=== PATIENT | female | born 1995 | race Two or more races ===

== ENCOUNTER 2017-02-11 17:35 | Emergency (ER) | payer SELFPAY ==
[2017-02-11 17:52] VITALS: BP 121/71
[2017-02-11] MEDS ORDERED: FAMOTIDINE 20 MG/2 ML VIAL IVP ONE (18:30)
[2017-02-11] MEDS ORDERED: ONDANSETRON PF 4 MG/2 ML VIAL. IV ONE ×2 (18:30)
[2017-02-11] MEDS ORDERED: IV NORMAL SALINE 1000ML BAG 1,000 ML IV ONE (18:30)
[2017-02-11 18:38] LABS: BASO # 0.1 x10^3/uL (0.0-0.2); BASO % 1 % (0-3); EOS % 1 % (0-3); HEMATOCRIT 35.5 % (36.0-47.0); HEMOGLOBIN 11.3 g/dL (12.0-15.5); LYMPH # 2.1 x10^3/uL (1.0-4.8); LYMPH % 20 % (24-48); MEAN CORPUSCULAR HEMOGLOBIN 23 pg (25-35); MEAN CORPUSCULAR HGB CONC 32 g/dL (31-37); MEAN CORPUSCULAR VOLUME 73 fL (79-100); MONO % 8 % (0-9); NEUT % 71 % (31-73); PLATELET COUNT 251 x10^3/uL (140-400); RED BLOOD COUNT 4.89 x10^6/uL (3.50-5.40); RED CELL DISTRIBUTION WIDTH 16.5 % (11.5-14.5); WHITE BLOOD COUNT 10.5 x10^3/uL (4.0-11.0)
[2017-02-11 18:46] LABS: BILIRUBIN,URINE NEGATIVE (NEG); GLUCOSE,URINE NEGATIVE (NEG); NITRITE,URINE NEGATIVE (NEG); PROTEIN,URINE NEGATIVE (NEG-TRACE)
[2017-02-11 18:52] LABS: BACTERIA,URINE 0 /HPF (0-FEW); CREATININE 0.6 mg/dL (0.6-1.0); GFR 128.8; POTASSIUM 3.3 mmol/L (3.5-5.1); RBC,URINE RARE /HPF (0-2); SQUAMOUS EPITHELIAL CELL,UR OCC /LPF; WBC,URINE 0 /HPF (0-4)
[2017-02-11 18:58] LABS: ALBUMIN 3.9 g/dL (3.4-5.0); ALBUMIN/GLOBULIN RATIO 0.9 (1.0-1.7); TOTAL BILIRUBIN 0.6 mg/dL (0.2-1.0); TOTAL PROTEIN 8.1 g/dL (6.4-8.2)
[2017-02-11] MEDS ORDERED: PNV1TABL34 PO (19:48)
[2017-02-11] MEDS ORDERED: ONDA4TAB10 SL (19:48)
--- NOTE | 2017-02-11 19:48 | PHYS DOC ---
Past Medical History Past Medical History: GERD Past Surgical History: No Surgical History Alcohol Use: Rarely Drug Use: None Adult General Chief Complaint Chief Complaint: ABDOMINAL PAIN HPI HPI Patient is a 21 year old female who presents here today complaining of midepigastric pain radiating to her chest. Patient reports that she has a history significant for GERD but feels like her symptoms get worse. Patient denies any other symptomatology. Patient denies any fevers shakes chills. Patient portion had nausea and vomiting 2. Patient has any diarrhea. Patient has a dysuria frequency or urgency. Patient has any vaginal bleeding. Patient reports her last menstrual period was approximately 4 weeks ago. Patient has any melena or bright red blood per rectum. Patient denies any hematemesis. Patient reports that she ate chicken earlier today prior to her stomach hurting. She reports that she can with baked nonfried. Patient is 0 para 0. Review of systems Constitutional: Denies fever or chills Eyes: Denies change in visual acuity, redness, or eye pain HENT: Denies nasal congestion or sore throat Physical exam Constitutional: Well developed, well nourished, no acute distress, non-toxic appearance. HENT: Normocephalic, atraumatic, bilateral external ears normal, oropharynx moist, no oral exudates, nose normal. Eyes: PERRLA, EOMI, conjunctiva normal, no discharge. Neck: Normal range of motion, no tenderness, supple, no stridor. Cardiovascular:Heart rate regular rhythm, Lungs & Thorax: Bilateral breath sounds clear to auscultation Abdomen: Bowel sounds normal, soft, no tenderness, no masses, no pulsatile masses. Mild midepigastric tenderness to palpation. No Mejia sign. No rebound or guarding. Patient does not present with any signs or symptoms that would be consistent with an acute surgical abdomen. Skin: Warm, dry, no erythema, no rash. Back: No tenderness, no CVA tenderness. Extremities: No tenderness, no cyanosis, no clubbing, ROM intact, no edema. Neurologic: Alert and oriented X 3, normal motor function, normal sensory function, no focal deficits noted. Psychologic: Affect normal, judgement normal, mood normal. This is a 21-year-old female who presents here today complaining of midepigastric discomfort consistent with her GERD-type pain. Patient had normal CBC and chemistry. Patient's UA was unremarkable. Patient's labs were significant for a positive test. She had a beta hCG of greater than 30 ,000. Again patient has no tenderness to palpation in her pelvic area. Patient has no pelvic complaints. No vaginal discharge or vaginal bleeding. No indication at this time for an ER ultrasound. While in the ER the patient was given Pepcid IV and normal saline solution with significant improvement in her symptoms all she is here. Patient's given IV Zofran and no longer feels nauseous. Lab results were discussed with the patient. Patient's wherever positive presence of test and need to follow-up with an OB doctor. Patient be sent home with Zofran as well as vitamins. Current Medications Current Medications Current Medications Medications (Trade) Dose Ordered Sig/Apryl Start Time Stop Time Status Last Admin Dose Admin Famotidine (Pepcid) 20 mg 1X ONCE 02/11/17 18:30 02/11/17 18:31 DC 02/11/17 18:38 20 MG Ondansetron HCl (Zofran) 4 mg 1X ONCE 02/11/17 18:30 02/11/17 18:31 DC Sodium Chloride 1,000 ml @ 1,000 mls/hr 1X ONCE 02/11/17 18:30 02/11/17 19:29 DC 02/11/17 18:38 1,000 MLS/HR Allergies Allergies Allergies Coded Allergies Type Severity Reaction Last Updated Verified No Known Drug Allergies 02/11/17 No Current Patient Data Vital Signs Vital Signs Date Time Temp Pulse Resp B/P (MAP) Pulse Ox O2 Delivery O2 Flow Rate FiO2 02/11/17 17:52 98.9 90 16 121/71 (88) 99 Room Air 98.9 Lab Values Laboratory Tests Test 02/11/17 17:45 02/11/17 18:00 POC Urine HCG, Qualitative Hcg positive (Negative) White Blood Count 10.5 x10^3/uL (4.0-11.0) Red Blood Count 4.89 x10^6/uL (3.50-5.40) Hemoglobin 11.3 g/dL (12.0-15.5) L Hematocrit 35.5 % (36.0-47.0) L Mean Corpuscular Volume 73 fL (79-100) L Mean Corpuscular Hemoglobin 23 pg (25-35) L Mean Corpuscular Hemoglobin Concent 32 g/dL (31-37) Red Cell Distribution Width 16.5 % (11.5-14.5) H Platelet Count 251 x10^3/uL (140-400) Neutrophils (%) (Auto) 71 % (31-73) Lymphocytes (%) (Auto) 20 % (24-48) L Monocytes (%) (Auto) 8 % (0-9) Eosinophils (%) (Auto) 1 % (0-3) Basophils (%) (Auto) 1 % (0-3) Neutrophils # (Auto) 7.4 x10^3uL (1.8-7.7) Lymphocytes # (Auto) 2.1 x10^3/uL (1.0-4.8) Monocytes # (Auto) 0.8 x10^3/uL (0.0-1.1) Eosinophils # (Auto) 0.1 x10^3/uL (0.0-0.7) Basophils # (Auto) 0.1 x10^3/uL (0.0-0.2) Urine Collection Type Unknown Urine Color Yellow Urine Clarity Clear Urine pH 6.0 Urine Specific [place] >=1.030 Urine Protein Negative mg/dL (NEG-TRACE) Urine Glucose (UA) Negative mg/dL (NEG) Urine Ketones (Stick) 40 mg/dL (NEG) Urine Blood Negative (NEG) Urine Nitrite Negative (NEG) Urine Bilirubin Negative (NEG) Urine Urobilinogen Dipstick 1.0 mg/dL (0.2 mg/dL) Urine Leukocyte Esterase Negative (NEG) Urine RBC Rare /HPF (0-2) Urine WBC 0 /HPF (0-4) Urine Squamous Epithelial Cells Occ /LPF Urine Bacteria 0 /HPF (0-FEW) Urine Mucus Slight /LPF Maternal Serum HCG Beta Subunit 77405 mIU/mL (0-5) H Sodium Level 136 mmol/L (136-145) Potassium Level 3.3 mmol/L (3.5-5.1) L Chloride Level 100 mmol/L (98-107) Carbon Dioxide Level 24 mmol/L (21-32) Anion Gap 12 (6-14) Blood Urea Nitrogen 9 mg/dL (7-20) Creatinine 0.6 mg/dL (0.6-1.0) Estimated GFR (Cockcroft-Gault) 128.8 BUN/Creatinine Ratio 15 (6-20) Glucose Level 86 mg/dL (70-99) Calcium Level 9.0 mg/dL (8.5-10.1) Total Bilirubin 0.6 mg/dL (0.2-1.0) Aspartate Amino Transferase (AST) 14 U/L (15-37) L Alanine Aminotransferase (ALT) 22 U/L (14-59) Alkaline Phosphatase 74 U/L (46-116) Total Protein 8.1 g/dL (6.4-8.2) Albumin 3.9 g/dL (3.4-5.0) Albumin/Globulin Ratio 0.9 (1.0-1.7) L Lipase 170 U/L (73-393) Laboratory Tests 02/11/17 18:00 Laboratory Tests 02/11/17 18:00 EKG EKG [] Radiology/Procedures Radiology/Procedures [] Course & Med Decision Making Course & Med Decision Making Pertinent Labs and Imaging studies reviewed. (See chart for details) [] Dragon Disclaimer Dragon Disclaimer This electronic medical record was generated, in whole or in part, using a voice recognition dictation system. Departure Departure Impression: Primary Impression: GERD (gastroesophageal reflux disease) Additional Impression: Vomiting during Disposition: 01 HOME, SELF-CARE Condition: IMPROVED Referrals: NO PCP (PCP) Patient Instructions: ABCs of , Diet for Gastroesophageal Reflux Disease, Adult, Nausea and Vomiting Scripts Pnv With Ca,No.72/Iron,Carb/Fa ( PLUS IRON TABLET) 1 Each Tablet 1 TAB PO DAILY, #30 TAB 11 Refills Prov: TERESA ZELAYA MD 02/11/17 Ondansetron (ZOFRAN ODT) 4 Mg Tab.rapdis 1 TAB SL Q6HRS Y for NAUSEA, #12 TAB Prov: TERESA ZELAYA MD 02/11/17 Problem Qualifiers TERESA ZELAYA MD Feb 11, 2017 19:48
== END 2017-02-11 20:08 | disposition home or self-care (01) ==
LOC: ER 17:35
DX: O21.9 Vomiting of pregnancy, unspecified (principal); K21.9 Gastro-esophageal reflux disease without esophagitis; Z79.899 Other long term (current) drug therapy
CPT/HCPCS: 36415; 80053; 81001; 81025; 83690; 84702; 85025; 96361; 96374; 99284; J2405; J7030; S0028

== ENCOUNTER 2017-10-02 07:07 | Inpatient (IN) | payer OTHER ==
[2017-10-02] MEDS ORDERED: LIDOCAINE 1% PF 30 ML VIAL. INJ (07:15)
[2017-10-02] MEDS ORDERED: MAG HYDROX/ALUMINUM HYD/SIMETH 30 ML ORAL.SUSP PO (07:15)
[2017-10-02] MEDS ORDERED: CITRIC ACID/SODIUM CITRATE 30 ML SOLUTION. PO (07:15)
[2017-10-02] MEDS ORDERED: TERBUTALINE 1 MG/ML VIAL. SQ (07:15)
[2017-10-02] MEDS ORDERED: 0.9 % SODIUM CHLORIDE 10 ML DISP.SYRIN. IV (07:15)
[2017-10-02] MEDS ORDERED: fentaNYL PF VIAL 100 MCG/2 ML VIAL IV (07:15)
[2017-10-02] MEDS ORDERED: BUTORPHANOL 2 MG/ML VIAL. IV ×2 (07:15)
[2017-10-02 07:58] LABS: HEMATOCRIT 28.2 % (36.0-47.0); MEAN CORPUSCULAR HEMOGLOBIN 21 pg (25-35); MEAN CORPUSCULAR HGB CONC 32 g/dL (31-37); MEAN CORPUSCULAR VOLUME 66 fL (79-100); PLATELET COUNT 181 x10^3/uL (140-400); RED BLOOD COUNT 4.27 x10^6/uL (3.50-5.40); WHITE BLOOD COUNT 5.7 x10^3/uL (4.0-11.0)
[2017-10-02] MEDS: IV RINGERS,LACTATED 1000ML 1,000 ML IV ×3 (08:06→20:40)
[2017-10-02] MEDS: OXYTOCIN 30 UNIT/500 ML PREMIX 500 ML IV (08:07)
[2017-10-02] MEDS: DINOPROSTONE 10 MG SUPP.VAG VG (20:40)
[2017-10-03 03:22] LABS: RPR Non Reactive (Non Reactive)
[2017-10-03] MEDS ORDERED: L&D EPIDURAL CASSETTE 100 ML EP ×2 (05:30→15:15)
[2017-10-03] MEDS ORDERED: OXYTOCIN 30 UNIT/500 ML PREMIX 500 ML IV (06:00)
[2017-10-03] MEDS ORDERED: L&D EPIDURAL SYRINGE 50 ML EP ×4 (10:00→15:45)
[2017-10-03] MEDS ORDERED: ONDANSETRON PF 4 MG/2 ML VIAL. (10:20)
[2017-10-03] MEDS: ONDANSETRON PF 4 MG/2 ML VIAL. IV ×3 (10:31→21:04)
[2017-10-03] MEDS ORDERED: ROPIVacaine 0.2% IN 0.9%NACL PF 40 MG/20 ML DISP.SYRIN. ×2 (12:09→13:00)
[2017-10-03] MEDS ORDERED: L&D EPIDURAL 50 ML SYRINGE. EP (13:00)
[2017-10-03] MEDS ORDERED: IV RINGERS,LACTATED 1000ML 1,000 ML IV ×3 (15:04→20:40)
[2017-10-03] MEDS ORDERED: ePHEDrine PF IN SALINE 50 MG/5 ML DISP.SYRIN IV (15:15)
[2017-10-03] MEDS ORDERED: NALOXONE 0.4 MG/ML VIAL. IV ×2 (15:15→15:45)
[2017-10-03] MEDS ORDERED: ROPIVacaine 0.2% IN 0.9%NACL PF 40 MG/20 ML DISP.SYRIN. EPI ×2 (15:15→15:45)
[2017-10-03] MEDS ORDERED: BUPIVACAINE MPF 0.25% 10 ML VIAL. EPI (15:45)
[2017-10-03] MEDS ORDERED: fentaNYL PF VIAL 100 MCG/2 ML VIAL EPI (15:45)
[2017-10-03] MEDS: L&D EPIDURAL SYRINGE 50 ML EP ×3 (15:49→21:51)
[2017-10-03] MEDS ORDERED: BUPIVACAINE MPF 0.25% 30 ML VIAL. ×2 (20:16→20:20)
[2017-10-03] MEDS ORDERED: miSOPROStol 200MCG TAB 200 MCG TABLET PR (21:45)
[2017-10-03] MEDS: OXYTOCIN 30 UNIT/500 ML PREMIX 500 ML IV (21:49)
[2017-10-03] MEDS: IV RINGERS,LACTATED 1000ML 1,000 ML IV (22:04)
[2017-10-04] MEDS: IBUPROFEN 800 MG TABLET. PO ×2 (00:22→09:07)
[2017-10-04] MEDS ORDERED: BENZOCAINE 20% TOPICAL AEROSOL SPRAY 57GM CAN. TP (00:30)
[2017-10-05] MEDS: MEASLES, MUMPS & RUBELLA VACC 0.5 ML VIAL. VAX SQ (11:53)
== END 2017-10-05 16:26 | disposition home or self-care (01) | DRG 775 ==
LOC: 3 SO LND 07:07
PROC: 10E0XZZ Delivery of Products of Conception, External Approach (ICD-10-PCS; principal; 2017-10-03)
PROC: 3E0R3BZ Introduction of Anesthetic Agent into Spinal Canal, Percutaneous Approach (ICD-10-PCS; 2017-10-03)
PROC: 00HU33Z Insertion of Infusion Device into Spinal Canal, Percutaneous Approach (ICD-10-PCS; 2017-10-03)
PROC: 3E0234Z Introduction of Serum, Toxoid and Vaccine into Muscle, Percutaneous Approach (ICD-10-PCS; 2017-10-03)
DX: O80 Encounter for full-term uncomplicated delivery (principal); Z23 Encounter for immunization; Z37.0 Single live birth; Z3A.00 Weeks of gestation of pregnancy not specified
CPT/HCPCS: 36415; 85027; 86593; 86850; 86900; 86901; 90707; J2405; J2590; J2795; J3490; J7120

== ENCOUNTER → 2020-02-18 | Outpatient (CLI) | payer MEDICAID, OTHER ==
[2017-10-05 11:30] VITALS: BP 101/56
[~2020-02-18] MED LIST: HYDR-3164 PO; NAPR-514 PO; ONDA4TAB10 SL; PNV1TABL34 PO
--- NOTE | 2020-02-18 16:58 | KCIC ---
EXAM: Ultrasound OB Greater than 14 weeks INDICATION: Reason: SIZE AND DATES / Spl. Instructions: / History: TECHNIQUE: Real-time obstetrical ultrasound was performed with permanent freeze-frame documentation. COMPARISON: None. FINDINGS: POSITION: Breech HEART RATE: 155 bpm VERÓNICA: 8.6 cm PLACENTA: Posterior, not low-lying. CERVICAL LENGTH: 3. cm MATERNAL UTERUS: Unremarkable. MATERNAL ADNEXA: Unremarkable. AGE/DATES: Gestational Age by LMP: 19 weeks 2 days Gestation Age by US: 19 weeks 1 day EDC by LMP: 07/12/2020 EDC by US: 07/13/2020 WEIGHT: 269 grams +/- 40 grams PERCENTILE WEIGHT: Not estimated BIOMETRIC PARAMETERS: BPD: 4.4 cm corresponding with 19 weeks 3 days HC: 16.2 cm corresponding with 19 weeks 0 days AC: 14.2 cm corresponding with 19 weeks 4 days FL: 2.7 cm corresponding with 18 weeks 2 days ANATOMY: CARDIAC: Four-chamber view not well seen. UMBILICAL CORD: Normal 3 vessel cord. Normal cord insertion. BRAIN: Unremarkable. NOSE/LIPS: Unremarkable. SPINE: Unremarkable. EXTREMITIES: Unremarkable. STOMACH: Unremarkable. KIDNEYS: Not well seen. BLADDER: Unremarkable. IMPRESSION: Normal OB ultrasound demonstrating a single viable fetus in breech position. Estimated gestational age of 19 weeks 1 day and EDC of July 13, 2020. Recommend follow-up OB ultrasound for more detailed evaluation of certain aspects of the anatomy including the four-chamber heart, ventricular outflow tracts, and kidneys. Electronically signed by: Luis Werner MD (02/18/2020 4:55 PM) [id number]
== END ==
LOC: KCIC US 14:14
PROVIDERS: ATTEND Obstetrics & Gynecology
DX: O32.1XX0 Maternal care for breech presentation, not applicable or unspecified (principal); Z3A.19 19 weeks gestation of pregnancy
CPT/HCPCS: 76805

== ENCOUNTER 2020-07-08 18:46 | Inpatient (IN) | payer MEDICAID ==
[~2020-07-08] VITALS: Ht 154.9 cm; Wt 73.9 kg
[2020-07-08] MEDS ORDERED: OXYTOCIN 30 UNIT/500 ML PREMIX 500 ML IV PRN (19:15)
[2020-07-08] MEDS ORDERED: ACETAMINOPHEN 325 MG TABLET. PO PRN (19:15)
[2020-07-08] MEDS ORDERED: DINOPROSTONE 10 MG SUPP.VAG VG ONE (19:15)
[2020-07-08] MEDS ORDERED: TERBUTALINE 1 MG/ML VIAL. SQ PRN (19:15)
[2020-07-08] MEDS ORDERED: fentaNYL PF VIAL 100 MCG/2 ML VIAL IVP PRN ×3 (19:15)
[2020-07-08] MEDS ORDERED: 0.9 % SODIUM CHLORIDE 10 ML DISP.SYRIN. IV PRN (19:15)
[2020-07-08] MEDS ORDERED: ONDANSETRON PF 4 MG/2 ML VIAL. IVP PRN (19:15)
[2020-07-08] MEDS ORDERED: LIDOCAINE 1% PF 30 ML VIAL. INJ PRN (19:15)
[2020-07-08] MEDS ORDERED: BUTORPHANOL 2 MG/ML VIAL. IVP PRN ×2 (19:15)
[2020-07-08 19:49] LABS: BASO % 1 % (0-3); EOS % 0 % (0-3); HEMATOCRIT 36.2 % (36.0-47.0); HEMOGLOBIN 11.8 g/dL (12.0-15.5); LYMPH # 1.2 x10^3/uL (1.0-4.8); LYMPH % 16 % (24-48); MEAN CORPUSCULAR HEMOGLOBIN 25 pg (25-35); MEAN CORPUSCULAR HGB CONC 33 g/dL (31-37); MEAN CORPUSCULAR VOLUME 78 fL (79-100); MONO # 0.4 x10^3/uL (0.0-1.1); MONO % 5 % (0-9); NEUT % 79 % (31-73); PLATELET COUNT 153 x10^3/uL (140-400); RED BLOOD COUNT 4.66 x10^6/uL (3.50-5.40); RED CELL DISTRIBUTION WIDTH 23.9 % (11.5-14.5); WHITE BLOOD COUNT 7.6 x10^3/uL (4.0-11.0)
[2020-07-08 19:52] LABS: BILIRUBIN,URINE NEGATIVE (NEG); CLARITY,URINE CLEAR; COLOR,URINE YELLOW; NITRITE,URINE NEGATIVE (NEG); PROTEIN,URINE NEGATIVE (NEG-TRACE); UROBILINOGEN,URINE 0.2 mg/dL (0.2 mg/dL)
[2020-07-08 20:05] LABS: RBC,URINE >40 /HPF (0-2)
[2020-07-08 20:06] LABS: BACTERIA,URINE FEW /HPF (0-FEW); WBC,URINE OCC /HPF (0-4)
[2020-07-08 20:23] LABS: ANISOCYTOSIS MOD; PLT ESTIMATE ADEQUATE (ADEQUATE)
[2020-07-08 20:52] VITALS: BP 106/62
[2020-07-09] MEDS ORDERED: diphenhydrAMINE HCL 25 MG CAPSULE PO PRN (01:00)
[2020-07-09] MEDS: OXYTOCIN 30 UNIT/500 ML PREMIX 500 ML IV PRN (07:24)
--- NOTE | 2020-07-09 07:55 | PDOC1 ---
OB - History Hx of Present Care: Good Care Ultrasounds: Normal mid trimester US Obstetrical Complications: None Medical Complications: None Past Family/Social History * Past Medical, Surgical, Family and Obstetric Histories reviewed from chart. Rubella: Immune RPR/VDRL: Negative GBS Status: Negative HBsAG: Negative OB - Chief Complaint & HPI Date of Admission: Date of Admission: Jul 08, 2020 at 18:46 Chief Complaint/History : 2 Para: 1 EGA: 440 Reason for admission: induction of labor Indication for induction: post dates, maternal discomfort Admission Nurse Assessment Rev: Yes OB - Admission Exam Physical Exam Vitals: VS - Last 72 Hours, by Label Date Time Temp Pulse Resp B/P (MAP) Pulse Ox O2 Delivery O2 Flow Rate FiO2 07/08/20 20:52 98.2 92 18 106/62 (77) Room Air 98.2 HEENT: Normal Heart: Regular Rate Lungs: Clear, Equal Abdomen: Gravid, Non tender, Soft Extremities: Edema Reflexes: Normal Cervical Dilatation: 1cm Effacement: 75% Station: -3 Membranes: Intact Heart Rate: Normal Accelerations: Accelerations Present Contractions on Admission: None Text A: 40 wks IUP IOL post dates P: Admit IOL cervidil, then pitocin in am. DHARA MARTINEZ Jr, MD Jul 09, 2020 07:55
[2020-07-09] MEDS: IV RINGERS,LACTATED 1000ML 1,000 ML IV SCH (08:58)
[2020-07-09] MEDS ORDERED: DINOPROSTONE 10 MG SUPP.VAG VG ONE (17:15)
[2020-07-10] MEDS: IV RINGERS,LACTATED 1000ML 1,000 ML IV SCH ×4 (06:01→19:04)
[2020-07-10] MEDS: OXYTOCIN 30 UNIT/500 ML PREMIX 500 ML IV PRN (06:02)
[2020-07-10] MEDS ORDERED: ROPIVacaine 0.2% PF 10 ML VIAL. ONE ×2 (12:28→12:30)
[2020-07-10] MEDS ORDERED: L&D EPIDURAL 50 ML SYRINGE. ONE (12:30)
[2020-07-10] MEDS ORDERED: ONDANSETRON PF 4 MG/2 ML VIAL. IV PRN (12:30)
[2020-07-10] MEDS ORDERED: IV RINGERS,LACTATED 1000ML 1,000 ML IV ONE (12:30)
[2020-07-10] MEDS ORDERED: NALOXONE 0.4 MG/ML VIAL. IV PRN (12:30)
[2020-07-10] MEDS ORDERED: ePHEDrine PF IN SALINE 50 MG/10 ML SYRINGE. IV PRN (12:30)
[2020-07-10] MEDS ORDERED: fentaNYL PF VIAL 100 MCG/2 ML VIAL EPID ONE (12:30)
--- NOTE | 2020-07-10 14:05 | PDOC ---
OB Progress Note Date of Service 07/10/20 Time of Evaluation 1355 Notes Pt. feeling well. She is comfortable with epidural. Lab Laboratory Tests Test 07/08/20 19:00 07/08/20 19:30 07/08/20 19:31 Urine Collection Type Unknown Urine Color Yellow Urine Clarity Clear Urine pH 6.0 (<5.0-8.0) Urine Specific [place] 1.015 (1.000-1.030) Urine Protein Negative mg/dL (NEG-TRACE) Urine Glucose (UA) Negative mg/dL (NEG) Urine Ketones (Stick) >=80 mg/dL (NEG) Urine Blood Large (NEG) Urine Nitrite Negative (NEG) Urine Bilirubin Negative (NEG) Urine Urobilinogen Dipstick 0.2 mg/dL (0.2 mg/dL) Urine Leukocyte Esterase Trace (NEG) Urine RBC >40 /HPF (0-2) Urine WBC Occ /HPF (0-4) Urine Squamous Epithelial Cells Mod /LPF Urine Bacteria Few /HPF (0-FEW) Urine Mucus Slight /LPF White Blood Count 7.6 x10^3/uL (4.0-11.0) Red Blood Count 4.66 x10^6/uL (3.50-5.40) Hemoglobin 11.8 g/dL (12.0-15.5) Hematocrit 36.2 % (36.0-47.0) Mean Corpuscular Volume 78 fL (79-100) Mean Corpuscular Hemoglobin 25 pg (25-35) Mean Corpuscular Hemoglobin Concent 33 g/dL (31-37) Red Cell Distribution Width 23.9 % (11.5-14.5) Platelet Count 153 x10^3/uL (140-400) Neutrophils (%) (Auto) 79 % (31-73) Lymphocytes (%) (Auto) 16 % (24-48) Monocytes (%) (Auto) 5 % (0-9) Eosinophils (%) (Auto) 0 % (0-3) Basophils (%) (Auto) 1 % (0-3) Neutrophils # (Auto) 6.0 x10^3/uL (1.8-7.7) Lymphocytes # (Auto) 1.2 x10^3/uL (1.0-4.8) Monocytes # (Auto) 0.4 x10^3/uL (0.0-1.1) Eosinophils # (Auto) 0.0 x10^3/uL (0.0-0.7) Basophils # (Auto) 0.0 x10^3/uL (0.0-0.2) Platelet Estimate Adequate (ADEQUATE) Anisocytosis Mod Treponema pallidum Antibody Nonreactive (Nonreactive) Coronavirus (PCR) Not detected (Not Detected) SARS-CoV-2 Antigen (Rapid) Negative (NEGATIVE) Medications Current Medications Sodium Chloride (Normal Saline Flush) 3 ml QSHIFT PRN IV AFTER MEDS AND BLOOD DRAWS; Start 07/08/20 at 19:15 Ringer's Solution 1,000 ml @ 125 mls/hr Q8H IV Last administered on 07/10/20at 12:37; Start 07/08/20 at 19:15 Butorphanol Tartrate (Stadol) 1 mg PRN Q1HR PRN IVP mild to moderate labor pain; Start 07/08/20 at 19:15 Butorphanol Tartrate (Stadol) 2 mg PRN Q1HR PRN IVP Severe labor pain; Start 07/08/20 at 19:15 Fentanyl Citrate (Fentanyl 2ml Vial) 50 mcg PRN Q20MIN PRN IVP Labor pain; Start 07/08/20 at 19:15 Fentanyl Citrate (Fentanyl 2ml Vial) 75 mcg PRN Q20MIN PRN IVP Labor pain; Start 07/08/20 at 19:15 Fentanyl Citrate (Fentanyl 2ml Vial) 100 mcg PRN Q20MIN PRN IVP Labor pain; Start 07/08/20 at 19:15 Acetaminophen (Tylenol) 650 mg PRN Q6HRS PRN PO MILD PAIN / TEMP > 100.3'F; Start 07/08/20 at 19:15 Ondansetron HCl (Zofran) 4 mg PRN Q4HRS PRN IVP NAUSEA/VOMITING; Start 07/08/20 at 19:15 Terbutaline Sulfate (Brethine) 0.25 mg 1X PRN PRN SQ SEE COMMENTS; Start 07/08/20 at 19:15; Stop 07/09/20 at 19:14; Status DC Lidocaine HCl (Xylocaine 1% Pf 30ml Vial) 30 ml 1X PRN PRN INJ SEE COMMENTS; Start 07/08/20 at 19:15; Stop 07/10/20 at 19:14 Oxytocin 500 ml @ 0 mls/hr CONT PRN IV SEE I/O RECORD Last administered on 07/10/20at 06:02; Start 07/08/20 at 19:15 Oxytocin 500 ml @ 0 mls/hr CONT PRN PRN IV Post delivery bleeding; Start 07/08/20 at 19:15 Ibuprofen (Motrin) 800 mg PRN Q6HRS PRN PO INFLAMMATION; Start 07/08/20 at 19:15 Dinoprostone (Cervidil) 10 mg 1X ONCE VG Last administered on 07/08/20at 20:18; Start 07/08/20 at 19:15; Stop 07/08/20 at 19:23; Status DC Diphenhydramine HCl (Benadryl) 25 mg PRN QHS PRN PO INSOMNIA Last administered on 07/09/20at 01:30; Start 07/09/20 at 01:00 Dinoprostone (Cervidil) 10 mg 1X ONCE VG Last administered on 07/09/20at 19:02; Start 07/09/20 at 17:15; Stop 07/09/20 at 17:16; Status DC Ringer's Solution 1,000 ml @ 0 mls/hr Q0M ONCE IV ; Start 07/10/20 at 12:30; Stop 07/10/20 at 12:34; Status DC Ephedrine Sulfate (ePHEDrine PF IN SALINE SYRINGE) 10 mg PRN Q2MIN PRN IV IF SBP<90; Start 07/10/20 at 12:30 Naloxone HCl (Narcan) 0.04 mg PRN Q1MIN PRN IV SEE COMMENTS; Start 07/10/20 at 12:30 Fentanyl Citrate (Fentanyl 2ml Vial) 100 mcg 1X ONCE EPID ; Start 07/10/20 at 12:30; Stop 07/10/20 at 12:34; Status DC Fentanyl Citrate 50 ml @ 14 mls/hr CONT PRN EPID PAIN; Start 07/10/20 at 12:30 Ondansetron HCl (Zofran) 4 mg PRN Q6HRS PRN IV NAUSEA/VOMITING; Start 07/10/20 at 12:30 Ropivacaine (Naropin 0.2%) 10 ml STK-MED ONCE .ROUTE ; Start 07/10/20 at 12:28; Stop 2/20/21 at 12:29; Status DC Active Scripts Active [place] 5-325 Tablet (Acetaminophen/Hydrocodone Bitart) 1 Each Tablet 1 Tab PO PRN Q6HRS PRN 7 Days Naproxen 500 Mg Tablet 500 Mg PO Q6HRS Plus Iron Tablet (Pnv With Ca,No.72/Iron,Carb/Fa) 1 Each Tablet 1 Tab PO DAILY Zofran Odt (Ondansetron) 4 Mg Tab.rapdis 1 Tab SL Q6HRS PRN Exam Abd: soft, non tender Cervix: 3/90/-2 AROM: moderate amount clear fluid] IUP and FSE placed. Assessment 40 wks IUP IOL Plan of Care: Continue current Tx, Mgmt (Continue IOL.) DHARA MARTINEZ Jr, MD Jul 10, 2020 14:05
[2020-07-10] MEDS: L&D EPIDURAL SYRINGE 50 ML EPID PRN ×2 (15:37→19:00)
[2020-07-10] MEDS ORDERED: PHENYLEPH/MINERAL OIL/PETROLAT RECTAL OINTMENT TUBE. RC PRN (22:30)
[2020-07-10] MEDS ORDERED: HYDROCORTISONE 1% TOPICAL OINTMENT 30GM TUBE. TP PRN (22:30)
[2020-07-10] MEDS ORDERED: OXYTOCIN 30 UNIT/500 ML PREMIX 500 ML IV PRN (22:30)
[2020-07-10] MEDS ORDERED: MAG HYDROX/ALUMINUM HYD/SIMETH 30 ML ORAL.SUSP PO PRN (22:30)
[2020-07-10] MEDS ORDERED: TDaP (Adacel) per PROTOCOL. MC PRN (22:30)
[2020-07-10] MEDS ORDERED: diphenhydrAMINE HCL 25 MG CAPSULE PO PRN (22:30)
[2020-07-10] MEDS ORDERED: BENZOCAINE 20% TOPICAL AEROSOL SPRAY 57GM CAN. TP PRN (22:30)
[2020-07-10] MEDS ORDERED: ACETAMINOPHEN 325 MG TABLET. PO PRN (22:30)
[2020-07-10] MEDS ORDERED: MAGNESIUM HYDROXIDE 2,400 MG/30 ML ORAL.SUSP. PO PRN (22:30)
[2020-07-10] MEDS ORDERED: oxyCODONE/APAP 5/325 1 TAB TABLET PO PRN (22:30)
[2020-07-10] MEDS ORDERED: ZOLPIDEM 5 MG TABLET. PO PRN (22:30)
[2020-07-10] MEDS ORDERED: SIMETHICONE 80 MG TAB.CHEW PO PRN (22:30)
[2020-07-10] MEDS ORDERED: IBUPROFEN 400 MG TABLET. PO PRN (22:30)
[2020-07-10] MEDS ORDERED: 0.9 % SODIUM CHLORIDE 10 ML DISP.SYRIN. IV PRN (22:30)
[2020-07-10] MEDS ORDERED: DOCUSATE SODIUM 100 MG CAPSULE. PO PRN (22:30)
[2020-07-10] MEDS ORDERED: MMR per PROTOCOL. MC PRN (22:30)
--- NOTE | 2020-07-10 22:30 | PDOC ---
VAGINAL DELIVERY DATE DATE: 07/10/20 TIME: 22:28 : 2 Para: 2 EGA: 40 VAGINAL DELIVERY: VTX VACCUM ASSISTED: No PLACENTA: Spontaneous 8/9 SEX: Male WEIGHT Weight [ 7 lbs. 14 oz ] Nuchal Cord: No Amniotic Fluid: Clear PAIN: Epidural EPISIOTOMY: No EXTENSION: No EBL 300 ml COMPLICATIONS none CONDITION pt. stable Signs of Intrauterine Infectio: None Shoulder Dystocia: No DHARA MARTINEZ Jr, MD Jul 10, 2020 22:30
[2020-07-11] VITALS (7 sets, daily range): BP systolic 84–109; BP diastolic 33–68
[2020-07-11] MEDS: IBUPROFEN 400 MG TABLET. PO PRN ×3 (00:46→20:18)
[2020-07-11] MEDS ORDERED: FERROUS SULFATE 325 MG TABLET. PO SCH (08:00)
--- NOTE | 2020-07-11 08:15 | NUR ---
[employer] molder phone with #[phone] to go over pt and baby care. Family member in room while going over cares. Addendum: 07/11/20 at 1231 by JULIET PHILLIPS RN charted on wrong pt
--- NOTE | 2020-07-11 08:21 | PDOC ---
OB Progress Note Date of Service 07/11/20 Time of Evaluation 0815 Notes Pt. feeling well. No complaints. Medications Current Medications Sodium Chloride (Normal Saline Flush) 3 ml QSHIFT PRN IV AFTER MEDS AND BLOOD DRAWS; Start 07/08/20 at 19:15 Ringer's Solution 1,000 ml @ 125 mls/hr Q8H IV Last administered on 07/10/20at 19:04; Start 07/08/20 at 19:15 Butorphanol Tartrate (Stadol) 1 mg PRN Q1HR PRN IVP mild to moderate labor pain; Start 07/08/20 at 19:15 Butorphanol Tartrate (Stadol) 2 mg PRN Q1HR PRN IVP Severe labor pain; Start 07/08/20 at 19:15 Fentanyl Citrate (Fentanyl 2ml Vial) 50 mcg PRN Q20MIN PRN IVP Labor pain; Start 07/08/20 at 19:15 Fentanyl Citrate (Fentanyl 2ml Vial) 75 mcg PRN Q20MIN PRN IVP Labor pain; Start 07/08/20 at 19:15 Fentanyl Citrate (Fentanyl 2ml Vial) 100 mcg PRN Q20MIN PRN IVP Labor pain; Start 07/08/20 at 19:15 Acetaminophen (Tylenol) 650 mg PRN Q6HRS PRN PO MILD PAIN / TEMP > 100.3'F; Start 07/08/20 at 19:15 Ondansetron HCl (Zofran) 4 mg PRN Q4HRS PRN IVP NAUSEA/VOMITING; Start 07/08/20 at 19:15 Terbutaline Sulfate (Brethine) 0.25 mg 1X PRN PRN SQ SEE COMMENTS; Start 07/08/20 at 19:15; Stop 07/09/20 at 19:14; Status DC Lidocaine HCl (Xylocaine 1% Pf 30ml Vial) 30 ml 1X PRN PRN INJ SEE COMMENTS; Start 07/08/20 at 19:15; Stop 07/10/20 at 19:14; Status DC Oxytocin 500 ml @ 0 mls/hr CONT PRN IV SEE I/O RECORD Last administered on 07/10/20at 06:02; Start 07/08/20 at 19:15 Oxytocin 500 ml @ 0 mls/hr CONT PRN PRN IV Post delivery bleeding; Start 07/08/20 at 19:15 Ibuprofen (Motrin) 800 mg PRN Q6HRS PRN PO INFLAMMATION Last administered on 07/11/20at 00:46; Start 07/08/20 at 19:15 Dinoprostone (Cervidil) 10 mg 1X ONCE VG Last administered on 07/08/20at 20:18; Start 07/08/20 at 19:15; Stop 07/08/20 at 19:23; Status DC Diphenhydramine HCl (Benadryl) 25 mg PRN QHS PRN PO INSOMNIA Last administered on 07/09/20at 01:30; Start 07/09/20 at 01:00 Dinoprostone (Cervidil) 10 mg 1X ONCE VG Last administered on 07/09/20at 19:02; Start 07/09/20 at 17:15; Stop 07/09/20 at 17:16; Status DC Ringer's Solution 1,000 ml @ 0 mls/hr Q0M ONCE IV ; Start 07/10/20 at 12:30; Stop 07/10/20 at 12:34; Status DC Ephedrine Sulfate (ePHEDrine PF IN SALINE SYRINGE) 10 mg PRN Q2MIN PRN IV IF SBP<90; Start 07/10/20 at 12:30 Naloxone HCl (Narcan) 0.04 mg PRN Q1MIN PRN IV SEE COMMENTS; Start 07/10/20 at 12:30 Fentanyl Citrate (Fentanyl 2ml Vial) 100 mcg 1X ONCE EPID ; Start 07/10/20 at 12:30; Stop 07/10/20 at 12:34; Status DC Fentanyl Citrate 50 ml @ 14 mls/hr CONT PRN EPID PAIN Last administered on 07/10/20at 19:00; Start 07/10/20 at 12:30 Ondansetron HCl (Zofran) 4 mg PRN Q6HRS PRN IV NAUSEA/VOMITING Last administered on 07/10/20at 18:59; Start 07/10/20 at 12:30 Ropivacaine (Naropin 0.2%) 10 ml STK-MED ONCE .ROUTE ; Start 07/10/20 at 12:28; Stop 07/10/20 at 12:29; Status DC Sodium Chloride (Normal Saline Flush) 10 ml QSHIFT PRN IV AFTER MEDS AND BLOOD DRAWS; Start 07/10/20 at 22:30 Oxytocin 500 ml @ 62.5 mls/hr CONT PRN IV SEE I/O RECORD; Start 07/10/20 at 22:30; Stop 07/11/20 at 06:29; Status DC Acetaminophen (Tylenol) 650 mg PRN Q6HRS PRN PO MILD PAIN / TEMP > 100.3'F; Start 07/10/20 at 22:30 Ibuprofen (Motrin) 800 mg PRN Q8HRS PRN PO INFLAMMATION/PAIN PREVENTION; Start 07/10/20 at 22:30 Docusate Sodium (Colace) 100 mg PRN BID PRN PO CONSTIPATION; Start 07/10/20 at 22:30 Magnesium Hydroxide (Milk Of Magnesia) 2,400 mg PRN DAILY PRN PO CONSTIPATION; Start 07/10/20 at 22:30 Al Hydroxide/Mg Hydroxide (Mylanta Plus Xs) 30 ml PRN Q4HRS PRN PO HEARTBURN / GAS; Start 07/10/20 at 22:30 Simethicone (Gas-X) 80 mg PRN AFTMEALHC PRN PO GAS / BLOATING; Start 07/10/20 at 22:30 Diphenhydramine HCl (Benadryl) 25 mg PRN Q6HRS PRN PO ITCHING; Start 07/10/20 at 22:30 Benzocaine (Americaine) 1 spray PRN QID PRN TP TOPICAL PAIN; Start 07/10/20 at 22:30 Phenyleph/Shark Oil/Min Oil/Petrol (Preparation H) 1 kate PRN QID PRN RC RECTAL PAIN; Start 07/10/20 at 22:30 Hydrocortisone (Cortaid) 1 kate PRN QID PRN TP PERINEAL PAIN; Start 07/10/20 at 22:30 Ferrous Sulfate (Feosol) 325 mg BIDWMEALS PO ; Start 07/11/20 at 08:00 Zolpidem Tartrate (Ambien) 5 mg PRN QHS PRN PO INSOMNIA, MAY REPEAT X1; Start 07/10/20 at 22:30 Info (Do NOT chart on this placeholder) 1 ea 1X PRN PRN MC SEE COMMENTS; Start 07/10/20 at 22:30 Info (Do NOT chart on this placeholder) 1 ea 1X PRN PRN MC SEE COMMENTS; Start 07/10/20 at 22:30 Oxycodone/ Acetaminophen (Percocet 5/325) 2 tab PRN Q4HRS PRN PO MODERATE PAIN, SEVERE PAIN; Start 07/10/20 at 22:30 Multivitamins (Thera M Plus) 1 tab DAILY PO ; Start 07/11/20 at 09:00 Active Scripts Active [place] 5-325 Tablet (Acetaminophen/Hydrocodone Bitart) 1 Each Tablet 1 Tab PO PRN Q6HRS PRN 7 Days Naproxen 500 Mg Tablet 500 Mg PO Q6HRS Plus Iron Tablet (Pnv With Ca,No.72/Iron,Carb/Fa) 1 Each Tablet 1 Tab PO DAILY Zofran Odt (Ondansetron) 4 Mg Tab.rapdis 1 Tab SL Q6HRS PRN Exam Abd: soft, non tender, fundus firm Assessment PPD#1 s/p Plan of Care: Continue current Tx, Mgmt DHARA MARTINEZ Jr, MD Jul 11, 2020 08:21
[2020-07-11 08:29] LABS: BASO % 1 % (0-3); EOS % 0 % (0-3); HEMATOCRIT 31.3 % (36.0-47.0); HEMOGLOBIN 10.2 g/dL (12.0-15.5); LYMPH # 1.5 x10^3/uL (1.0-4.8); LYMPH % 19 % (24-48); MEAN CORPUSCULAR HEMOGLOBIN 25 pg (25-35); MEAN CORPUSCULAR HGB CONC 33 g/dL (31-37); MEAN CORPUSCULAR VOLUME 78 fL (79-100); MONO # 0.7 x10^3/uL (0.0-1.1); MONO % 8 % (0-9); NEUT # 5.8 x10^3/uL (1.8-7.7); NEUT % 72 % (31-73); PLATELET COUNT 124 x10^3/uL (140-400); RED BLOOD COUNT 4.01 x10^6/uL (3.50-5.40); RED CELL DISTRIBUTION WIDTH 23.2 % (11.5-14.5)
[2020-07-11] MEDS ORDERED: MULTIVITAMIN with MINERAL TABLET. PO SCH (09:00)
[2020-07-12 05:00] VITALS: BP 110/69
[2020-07-12] MEDS: IBUPROFEN 400 MG TABLET. PO PRN (06:13)
--- NOTE | 2020-07-12 07:58 | PDOC3 ---
OB DISCHARGE SUMMARY DATE OF ADMISSION: 07/08/20 DATE OF DISCHARGE: 07/12/20 REASON FOR ADMISSION: Induction of labor INTRAPARTUM PROCEDURES: Spontanous Vag Deliv DISCHARGE DIAGNOSIS: Term Delivered DISCHARGE INFORMATION: Activity (ad jaqueline), Diet (regular), Instructions (pelvic rest x 6 wks) HOSPITAL COURSE Term gestation delivered vaginally without complications. DHARA MARTINEZ Jr, MD Jul 12, 2020 07:58
--- NOTE | 2020-07-12 08:04 | DISCH ---
DISCHARGE INSTRUCTIONS Condition on Discharge Condition on Discharge: Stable Activity After Discharge Activity Instructions for Disc: Activity as tolerated Lifting Instructions after Dis: No heavy lifting, No pulling or pushing, Do not lift >10 pounds Driving Instructions after Dis: Do not drive today Weight Bearing Status after Di: As tolerated Diet after Discharge Diet after Discharge: Regular Diet Texture: Regular Contacting the DRAngelica after DC Call your doctor for: Concerns you may have Follow-Up Follow up with: Dr. Christine in 6 wks DHARA CHRISTINE Jr, MD Jul 12, 2020 08:04
[2020-07-12 09:05] VITALS: BP 94/64
[2020-07-12 13:00] VITALS: BP 110/65
== END 2020-07-12 13:20 | disposition home or self-care (01) | DRG 807 ==
LOC: 3 SO LND 18:46 → 3 NORTH 07-11 01:38
PROVIDERS: ADMIT Obstetrics & Gynecology; ATTEND Obstetrics & Gynecology
PROC: 10E0XZZ Delivery of Products of Conception, External Approach (ICD-10-PCS; principal; 2020-07-08)
PROC: 10907ZC Drainage of Amniotic Fluid, Therapeutic from Products of Conception, Via Natural or Artificial Opening (ICD-10-PCS; 2020-07-08)
PROC: 3E0R3BZ Introduction of Anesthetic Agent into Spinal Canal, Percutaneous Approach (ICD-10-PCS; 2020-07-08)
PROC: 00HU33Z Insertion of Infusion Device into Spinal Canal, Percutaneous Approach (ICD-10-PCS; 2020-07-08)
DX: O80 Encounter for full-term uncomplicated delivery (principal); Z37.0 Single live birth; Z20.822 Contact with and (suspected) exposure to COVID-19; Z3A.40 40 weeks gestation of pregnancy
CPT/HCPCS: 36415; 81001; 85025; 86592; 86850; 86900; 86901; 87086; 87426; J2405; J2590; J2795; J3010; J7120; U0003; G0378; Q0163